=== PATIENT | female | born 1985 | race Caucasian/White ===

== ENCOUNTER 2019-12-18 19:48 | Emergency (ER) | payer MEDICAID, SELFPAY ==
[2019-12-18 20:19] VITALS: BP 119/82; PULSE 118; RESP 12; TEMP 36.9; O2SAT 97; BMI 23.3
--- NOTE | 2019-12-18 20:47 | W.ED.WOUNDLC ---
HPI - Wound/Laceration General: Chief Complaint: Wound/Laceration Stated Complaint: finger lac Time Seen by Provider: 12/18/19 20:05 History of Present Illness: HPI narrative: Cut right middle finger about an hour ago while taking a glass fixture off the ceiling that had a jagged edge on it Onset (ago): minute(s) Extremity Location: Right: hand Place: home Patient tetanus UTD: Yes Context: accidental Associated symptoms: Reports no associated symptoms and pain; Denies chills, fever(s), nausea or vomiting Review of Systems Const: Denies: fever(s), chills or body aches Eyes: Denies: change in vision or blurry vision ENMT: Denies: throat pain or nasal congestion Card: Denies: chest pain or dyspnea on exertion Resp: Denies: dyspnea, productive cough or non-productive cough GI: Denies: abdominal pain, nausea or vomiting Musc: Denies: extremity pain Skin/Breast: Reports: other (Small laceration right middle finger not actively bleeding patient complains about pain and says she feels like there might be a piece of glass); Denies: rash Neuro: Denies: headache(s) Psych: Denies: anxiety or depression Shaka/Lymph: Denies: easy bruising PFSH ED PFSH: Social History Smoking and tobacco status: current every day smoker Female Reproductive History: Date of last menstrual period: 11/24/19 Physical Exam Psych: COMMON NORMALS: mental status grossly normal Skin: OTHER: 1 inch laceration to the right middle finger medial aspect no active bleeding has full range of motion of finger distal neuro is intact Procedures Laceration Laceration 1: Site: hand Side (If applicable): right Size (cm): 1.5 Description: linear Depth: simple, single layer Local Anesthetic: lidocaine 1% Amount of anesthesia used (mL): 1 Pre-repair: wound explored (I cannot feel a piece of glass in her visualize obviously any glass), irrigated extensively and deep structures intact Skin layer closed with: nylon Size (cm): 4-0 Number of sutures: 3 Technique: simple, interrupted Course Vital Signs: Vital signs: Vital Signs Temperature 98.5 F 12/18/19 20:19 Pulse Rate 118 H 12/18/19 20:19 Respiratory Rate 12 12/18/19 20:19 Blood Pressure 119/82 12/18/19 20:19 Pulse Oximetry 97 12/18/19 20:19 Discharge Plan Discharge Patient Disposition: Home, Self-Care Clinical Impression: Laceration Condition: Stable Prescriptions: No Action No Known Home Medications RF: 0 Discharge Orders: Discharge Order (Routine); Ordered 12/18/19 Ordered By: Zachary Marr Discharge Diet: Usual diet Discharge Activity: Resume usual activity Patient Instructions: Finger Laceration (ED) Activity Restrictions/Additional Instructions: Sutures out in 7 days keep clean and dry if signs symptoms of infection develop follow-up the urgent care if pain persist in the finger follow-up urgent care and see about a referral to general surgeon in case her might be piece of glass in it Coding Level of Care Code ED Assisted Sales Representative for Hugo Schuster
[2019-12-18 21:31] VITALS: BP 118/64; PULSE 72; RESP 18; O2SAT 98
== END 2019-12-18 21:40 | disposition home or self-care (01) ==
PROVIDERS: Emergency Provider Nurse Practitioner Family
DX: S61.212A Laceration without foreign body of right middle finger without damage to nail, initial encounter (principal); W25.XXXA Contact with sharp glass, initial encounter; F17.210 Nicotine dependence, cigarettes, uncomplicated
CPT/HCPCS: 12001; 12345; 99281; 99282

== ENCOUNTER → 2020-09-03 11:23 | Outpatient (BNVA) | payer MEDICAID, SELFPAY | PROVIDERS: Visit Provider Nurse Practitioner Family | DX: N92.1 Excessive and frequent menstruation with irregular cycle (principal) | CPT/HCPCS: 84443; 85025; 88305 ==

== ENCOUNTER → 2020-09-12 13:40 | Outpatient (BNVA) | payer MEDICAID, SELFPAY | PROVIDERS: Visit Provider Obstetrics & Gynecology | DX: N92.0 Excessive and frequent menstruation with regular cycle (principal); N83.202 Unspecified ovarian cyst, left side; N88.8 Other specified noninflammatory disorders of cervix uteri | CPT/HCPCS: 76830 ==

== ENCOUNTER → 2021-06-03 14:10 | Outpatient (BNVA) | payer MEDICAID, SELFPAY | PROVIDERS: PCP Nurse Practitioner Family; Visit Provider Nurse Practitioner Family | DX: F41.1 Generalized anxiety disorder (principal) | CPT/HCPCS: 80053; 84443; 85025 ==

== ENCOUNTER 2022-03-08 16:21 | Emergency (ER) | payer MEDICAID, SELFPAY ==
[2022-03-08 16:37] VITALS: BP 129/89; PULSE 100; RESP 18; TEMP 37.9; O2SAT 99; BMI 23.3
[2022-03-08 16:47] VITALS: BP 108/71; PULSE 105; RESP 16; TEMP 36.4; O2SAT 99; BMI 17.7
--- NOTE | 2022-03-08 17:41 | XRR_ITS ---
PROCEDURE INFORMATION: Exam: XR Chest Exam date and time: 03/08/2022 6:34 PM Age: 36 years old Clinical indication: Shortness of breath; Additional info: Myalgia, fever TECHNIQUE: Imaging protocol: Radiologic exam of the chest. Views: 1 view. COMPARISON: CR Chest 1 [place] [id number] 04/07/2018 10:32 AM FINDINGS: Lungs: Unremarkable. No consolidation. Pleural spaces: Unremarkable. No pleural effusion. No pneumothorax. Heart/Mediastinum: Unremarkable. No cardiomegaly. Bones/joints: Unremarkable. XR/XR chest 1V portable [id number] IMPRESSION: No acute findings.
[2022-03-08 18:01] LABS: Basophils % 0.5 %; Eosinophils % 0.3 %; Hematocrit 39.5 % (37.0-47.0); Hemoglobin 13.4 g/dL (11.5-15.3); Lymphocytes # 0.5 10^3/uL (0.8-4.8); Mean Corpuscular HGB Conc 33.9 g/dL (30.0-36.0); Mean Corpuscular Hemoglobin 31.5 pg (28.0-34.0); Mean Corpuscular Volume 92.9 fl (81-99); Mean Platelet Volume 11.3 fL (7.4-10.4); Monocytes # 0.6 10^3/uL (0.2-0.9); Monocytes % 14.8 %; Neutrophils # 2.79 10^3/uL (1.8-7.7); Neutrophils % 71.1 %; Nucleated Red Blood Cells % 0 %; Platelet Count 172 10^3/cmm (130-400); Red Blood Count 4.25 10^6/uL (4.1-5.3); Red Cell Distribution Width 11.9 % (12.1-15.1); White Blood Count 3.9 10^3/uL (4.0-10.0)
[2022-03-08 18:47] LABS: Alanine Aminotransferase 12 U/L (0-33); Albumin Level 4.5 g/dL (3.5-5.2); Alkaline Phosphatase 46 U/L (35-105); Anion Gap 13.9 (5-19); Aspartate Amino Transferase 15 U/L (0-32); Blood Urea Nitrogen 7 mg/dL (6-20); Calcium 8.7 mg/dL (8.5-10.5); Carbon Dioxide 21 mmol/L (22-29); Chloride 103 mmol/L (98-107); Globulin 2.4 g/dL (1.3-4.6); Glomerular Filtration Rate 114.4 mL/min (90-130); Glucose 81 mg/dL (65-115); Osmolality Calculated 275 mOsm/kg (285-295); Potassium 3.9 mmol/L (3.5-5.1); Sodium 134 mmol/L (136-145); Total Bilirubin 0.2 mg/dL (0.15-1.2); Total Protein 6.9 g/dL (6.6-8.7)
--- NOTE | 2022-03-08 18:51 | ED_ITS ---
HPI - General Adult General: Chief complaint: Fever Stated complaint: Fever and whole body hurts Time Seen by Provider: 03/08/22 18:31 Source: patient and family Mode of arrival: ambulatory Limitations: no limitations History of Present Illness: Patient is a 36-year-old female presents to ED today with a complaint of not feeling well. Patient tells me yesterday she began noticing some mild body aches and a headache. She states since that time symptoms have progressed and is now having significant myalgias, headache, neck pain, ear pain, sore throat, nausea, and fevers. Fever upon arrival was low- grade at 100.3-100.9. She is not having any diarrhea or vomiting. 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 She does not complain of any visual changes. She is not having any neck stiffness or decreased range of motion. No rash. No urinary complaints. Onset (ago): day(s) (yesterday) Pain Consistency: constant Relieving factors: none Exacerbating factors: none Associated symptoms: Reports headache(s) and nausea; Deny chest pain, confusion, dyspnea, rash, palpitations, syncope or vomiting Treatments prior to arrival: other (tylenol/motrin) Review of Systems Const: Reports: fever(s), chills and body aches Eyes: Denies: change in vision, blurry vision, photophobia, floaters or seeing flashes ENMT: Reports: throat pain, odynophagia and ear or mastoid pain; Denies: nasal discharge, nasal congestion, post nasal drip or sinus pain Card: Denies: chest pain, palpitations, irregular heart rhythm, edema, lightheadedness, syncope, pre-syncope, dyspnea on exertion or orthopnea Resp: Denies: dyspnea, productive cough, non-productive cough, wheezing, hemoptysis or chest congestion GI: Reports: nausea; Denies: abdominal pain, vomiting or diarrhea : Denies: flank pain, difficulty voiding, dysuria, hematuria, vaginal odor, vaginal discharge or pelvic pain Musc: Reports: neck pain and joint pain (reports all her joints hurt ); Denies: back pain, extremity pain, extremity swelling, joint swelling, joint redness or joint warmth Skin/Breast: Denies: rash Neuro: Reports: headache(s); Denies: numbness in extremities, weakness in extremities, sensory changes, dizziness or confusion PFSH ED PFSH: Medical History Psychiatric care Family History Mother Anesthesia complication Ovarian cyst Hyperthyroidism Sister Ovarian cyst Father Hypothyroidism Denies family history of Diabetes Heart failure Hyperlipidemia Chronic kidney disease (CKD) Bleeding disorder Cancer Hypertension Stroke Social History Smoking and tobacco status: current every day smoker cigarettes Packs smoked per day: 0.5 Alcohol intake: never Female Reproductive History: Date of last menstrual period: 02/23/22 Physical Exam Const: COMMON NORMALS: average body habitus, patient oriented x3, no limitations, healthy appearing, alert and well nourished GENERAL APPEARANCE: cooperative and in distress (ill appearing, non-toxic) ORIENTATION/CONSC IOUSNESS: Yes awake, Yes oriented to person, Yes oriented to place and Yes oriented to time HENMT: COMMON NORMALS: normocephalic, atraumatic, external ears normal, EAC's normal, TM's normal bilaterally and Normal external nose present HEAD & SCALP: normal to inspection, normocephalic and atraumatic FACE & SINUS: normal facial exam NOSE: Normal external nose present EXTERNAL EAR: Yes external ears normal EXTERNAL AUDITORY CANAL: EAC's normal TYMPANIC MEMBRANE: TM's normal bilaterally MOUTH: Normal oral and palatal mucosa present, lip normal and tongue normal TEETH & GINGIVA: Yes fair dentition THROAT: posterior oropharynx normal, tonsils normal and uvula midline Eye: GENERAL EYE: appearance normal, both eyes and all related structures Neck/C-Spine: COMMON NORMALS: full ROM, no lymphadenopathy, supple and no meningeal signs GENERAL: Yes normal visual inspection, No anterior neck swelling and No submandibular swelling CERVICAL SPINE: Yes cervical ROM normal Resp: COMMON NORMALS: normal respiratory effort and clear to auscultation bilaterally AUSCULTATION: clear to auscultation bilaterally Cardio: COMMON NORMALS: regular rate and regular rhythm RATE: regular rate RHYTHM: regular rhythm GI: COMMON NORMALS: Normal to inspection, nondistended, normoactive bowel sounds present, Soft to palpation, non-tender, No hepatosplenomegaly present and no masses PALPATION: Yes Soft to palpation and Yes No hepatosplenomegaly present : COMMON NORMALS: Yes no CVA tenderness BLADDER/KIDNEY EXAM: Yes no CVA tenderness Back/Pelvis: COMMON NORMALS: no CVA tenderness, thoracic and lumbar spine normal to inspection, no thoracic nor lumbar tenderness and thoraco-lumbar ROM normal Extremity: COMMON NORMALS: normal to inspection GENERAL: Yes normal exam except as noted Neuro: KITTY COMA SCALE: document GCS findings [place] coma scale eye opening: Spontaneous [place] coma scale verbal response: Orientated [place] coma scale motor response: Obey commands Kitty coma scale total score: 15 COMMON NORMALS: patient oriented x3, CN's II-XII intact bilaterally, moves all extremities, no focal motor deficits, no sensory deficits noted and gait normal SENSORIUM/ORIENTATION: Yes alert, Yes oriented to person, Yes oriented to place and Yes oriented to time MENINGEAL SIGNS: Yes no meningeal signs Skin: COMMON NORMALS: no rashes or lesions noted GENERAL SKIN EXAM: no rashes or lesions noted Course Vital Signs: Vital signs: Vital Signs Temperature 100.9 F H 03/08/22 19:09 Pulse Rate 94 03/08/22 19:09 Respiratory Rate 18 03/08/22 19:09 Blood Pressure 136/93 03/08/22 19:09 Pulse Oximetry 97 03/08/22 19:09 Oxygen Delivery Me thod 03/08/22 19:09 [facility] - General Adult Medical Decision Making Patient is positive for COVID. Vital signs are stable. She does have a low- grade fever. She is satting normally on room air. Labs are non-concerning. CXR is normal. She has no risk factors for significant progression. Recommend conservative treatment at home. Return ED precautions given. Lab Data : 03/08/22 17:54 03/08/22 17:54 Radiology Impressions Chest X-Ray 03/08/22 17:41 IMPRESSION: No acute findings. Laboratory Results WBC 3.9 10^3/uL (4.0-10.0) L 03/08/22 17:54 RBC 4.25 10^6/uL (4.1-5.3) 03/08/22 17:54 Hgb 13.4 g/dL (11.5-15.3) 03/08/22 17:54 Hct 39.5 % (37.0-47.0) 03/08/22 17:54 MCV 92.9 fl (81-99) 03/08/22 17:54 MCH 31.5 pg (28.0-34.0) 03/08/22 17:54 MCHC 33.9 g/dL (30.0-36.0) 03/08/22 17:54 RDW 11.9 % (12.1-15.1) L 03/08/22 17:54 Plt Count 172 10^3/cmm (130-400) 03/08/22 17:54 MPV 11.3 fL (7.4-10.4) H 03/08/22 17:54 Neut % (Auto) 71.1 % 03/08/22 17:54 Lymph % (Auto) 13.0 % 03/08/22 17:54 [place] % (Auto) 14.8 % 03/08/22 17:54 Eos % (Auto) 0.3 % 03/08/22 17:54 Baso % (Auto) 0.5 % 03/08/22 17:54 Neut # (Auto) 2.79 10^3/uL (1.8-7.7) 03/08/22 17:54 Lymph # (Auto) 0.5 10^3/uL (0.8-4.8) L 03/08/22 17:54 [place] # (Auto) 0.6 10^3/uL (0.2-0.9) 03/08/22 17:54 Eos # (Auto) 0.0 10^3/uL (0.0-0.8) 03/08/22 17:54 Baso # (Auto) 0.0 10^3/uL (0.0-0.1) 03/08/22 17:54 Nucleated RBC % (auto) 0 % 03/08/22 17:54 Nucleated RBCs # 0.0 /100WBC 03/08/22 17:54 Sodium 134 mmol/L (136-145) L 03/08/22 17:54 Potassium 3.9 mmol/L (3.5-5.1) 03/08/22 17:54 Chloride 103 mmol/L (98-107) 03/08/22 17:54 Carbon Dioxide 21 mmol/L (22-29) L 03/08/22 17:54 Anion Gap 13.9 (5-19) 03/08/22 17:54 BUN 7 mg/dL (6-20) 03/08/22 17:54 Creatinine 0.6 mg/dL (0.5-0.9) 03/08/22 17:54 GFR Calculation 114.4 mL/min (90-130) 03/08/22 17:54 Glucose 81 mg/dL (65-115) 03/08/22 17:54 Calculated Osmolality 275 mOsm/kg (285-295) L 03/08/22 17:54 Calcium 8.7 mg/dL (8.5-10.5) 03/08/22 17:54 Total Bilirubin 0.2 mg/dL (0.15-1.2) 03/08/22 17:54 AST 15 U/L (0-32) 03/08/22 17:54 ALT 12 U/L (0-33) 03/08/22 17:54 Alkaline Phosphatase 46 U/L (35-105) 03/08/22 17:54 Total Protein 6.9 g/dL (6.6-8.7) 03/08/22 17:54 Albumin 4.5 g/dL (3.5-5.2) 03/08/22 17:54 Globulin 2.4 g/dL (1.3-4.6) 03/08/22 17:54 Urine Color Yellow (Yellow) 03/08/22 18:06 Urine Appearance Sl hazy (CLEAR) 03/08/22 18:06 Urine pH 6 (5-7) 03/08/22 18:06 Ur Specific [place] 1.015 (1.005-1.030) 03/08/22 18:06 Urine Protein Neg (Negative) 03/08/22 18:06 Urine Glucose (UA) Norm (Normal) 03/08/22 18:06 Urine Ketones 2+ (Negative) H 03/08/22 18:06 Urine Blood Neg (Negative) 03/08/22 18:06 Urine Nitrate Negative (Negative) 03/08/22 18:06 Urine Bilirubin Neg (Negative) 03/08/22 18:06 Urine Urobilinogen 1 mg/dL (Negative) H 03/08/22 18:06 Ur Leukocyte Esterase Negative (Negative) 03/08/22 18:06 Urine RBC None /hpf (0-2) 03/08/22 18:06 Urine WBC None /hpf (0-5) 03/08/22 18:06 Ur Squamous Epith Cells 5-10 /hpf (0-5) H 03/08/22 18:06 Amorphous Sediment Not Reportable 03/08/22 18:06 Urine Bacteria Trace /hpf (NONE) 03/08/22 18:06 Urine Mucus Trace /hpf 03/08/22 18:06 Coronavirus 229E (PCR) Not detected (NOT DETECT) 03/08/22 17:54 SARS-CoV-2 (PCR) Detected (NOT DETECT) A 03/08/22 17:54 Discharge Plan Discharge Patient Disposition: Home Clinical Impression: COVID-19 Condition: Stable Prescriptions: No Action ibuprofen 200 mg tablet 200 mg PO Q6H PRN levonorgestrel-ethinyl estrad [Aviane] 0.1-20 mg-mcg tablet 1 tab PO DAILY Qty: 28 12RF triamcinolone acetonide 0.1 % ointment 1 applic topical BID Qty: 30 2RF Rx Instructions: large area both hands buspirone 10 mg tablet 10 mg PO BID PRN (Reason: anxiety) Qty: 60 5RF citalopram [Celexa] 20 mg tablet 20 mg PO DAILY Qty: 30 5RF Discharge Orders: Discharge ED (Routine); Ordered 03/08/22 Ordered By: Mariposa Fuentes Referrals: Joana Tariq FNP-C [Primary Care Provider] - Patient Instructions: COVID-19 (Coronavirus Disease 2019) (ED) Coding Level of Care Code ED Concrete Products Machine Operator for Chg Fwd Exam Comprehensive
[2022-03-08 18:52] LABS: Bilirubin Urine Neg (Negative); Blood Urine Neg (Negative); Glucose Urine UA Norm (Normal); Ketones Urine 2+ (Negative); Nitrate Urine Negative (Negative); Protein Urine Neg (Negative); Specific Gravity, Urine 1.015 (1.005-1.030); Urine Appearance SL Hazy (CLEAR); Urine Color Yellow (Yellow); pH Urine 6 (5-7)
[2022-03-08 18:53] LABS: Add Urine Microscopic? YES; Leukocyte Esterase Urine Negative (Negative); Urobilinogen Urine 1 mg/dL (Negative)
[2022-03-08 18:54] LABS: Add Urine Culture? No; Bacteria Urine TRACE /hpf; Mucus Urine TRACE /hpf
[2022-03-08] MEDS: acetaminophen 500 mg Tablet 1000 MG PO (19:06)
[2022-03-08 19:09] VITALS: BP 136/93; PULSE 94; RESP 18; TEMP 38.3; O2SAT 97
[2022-03-08 19:52] LABS: Adenovirus Not Detected (NOT DETECT); Chlamydia Pneumoniae Not Detected (NOT DETECT); Coronavirus 229E,HKU1,NL63,OC4 Not Detected (NOT DETECT); Human Metapneumovirus Not Detected (NOT DETECT); Human Rhinovirus/Enterovirus Not Detected (NOT DETECT); Influenza A Not Detected (NOT DETECT); Influenza A H1 Not Detected (NOT DETECT); Influenza A H1-2009 Not Detected (NOT DETECT); Influenza A H3 Not Detected (NOT DETECT); Influenza B Not Detected (NOT DETECT); Mycoplasma Pneumoniae Not Detected (NOT DETECT); Parainfluenza Virus Type 1 Not Detected (NOT DETECT); Parainfluenza Virus Type 2 Not Detected (NOT DETECT); Parainfluenza Virus Type 3 Not Detected (NOT DETECT); Parainfluenza Virus Type 4 Not Detected (NOT DETECT); Respiratory Syncytial Virus A Not Detected (NOT DETECT); Respiratory Syncytial Virus B Not Detected (NOT DETECT); SARS-COV-2 Detected (NOT DETECT)
[2022-03-08 20:40] VITALS: BP 111/61; PULSE 74; RESP 18; TEMP 36.9; O2SAT 96
== END 2022-03-08 20:42 | disposition home or self-care (01) ==
PROVIDERS: Emergency Provider Physician Assistant; PCP Nurse Practitioner Family
DX: U07.1 COVID-19 (principal); F17.210 Nicotine dependence, cigarettes, uncomplicated
CPT/HCPCS: 71045; 80053; 81001; 85025; 87635; 99284

== ENCOUNTER 2022-11-29 20:43 | Emergency (ER) | payer MEDICAID, SELFPAY ==
[2022-11-29 21:01] VITALS: BP 124/79; PULSE 85; RESP 16; TEMP 36.8; O2SAT 98; BMI 25.7
[2022-11-29 22:03] VITALS: BP 118/74; PULSE 77; RESP 16; O2SAT 98
--- NOTE | 2022-11-29 22:08 | ED_ITS ---
HPI - Skin/Abscess/Foreign Bdy General: Chief complaint: Skin/Abscess/Foreign Body Stated complaint: spider bite to L thigh Time Seen by Provider: 11/29/22 21:48 Source: patient Mode of arrival: ambulatory Limitations: no limitations History of Present Illness: Patient is a nice 37-year-old female presents to ED today for concern of a possible brown recluse bite to her left upper thigh that she noticed yesterday. She states it started as a small black dot . She has seen multiple brown recluse's in her home. She states she noticed today the lesion began having some surrounding erythema. She states it is painful and burning in nature. MD complaint: insect bite/sting and lesion Onset (ago): day(s) (yesterday) Tetanus up to date: no Location: LLE Severity: moderate Quality: burning Pain Consistency: constant Relieving factors: none Exacerbating factors: none Context: other (possible spider bite) Associated symptoms: Reports no associated symptoms; Deny chills or fever(s) Treatments prior to arrival: none Review of Systems Const: Denies: fever(s), chills, body aches, fatigue or malaise Card: Denies: chest pain Resp: Denies: dyspnea GI: Denies: abdominal pain Musc: Reports: extremity pain; Denies: neck pain, back pain, extremity swelling, joint pain, joint swelling, joint redness or joint warmth Skin/Breast: Reports: new lesions Neuro: Denies: headache(s), numbness in extremities or sensory changes PFSH ED PFSH: Family History Mother Anesthesia complication Ovarian cyst Hyperthyroidism Sister Ovarian cyst Father Hypothyroidism Denies family history of Diabetes Heart failure Hyperlipidemia Chronic kidney disease (CKD) Bleeding disorder Cancer Hypertension Stroke Social History Smoking and tobacco status: current every day smoker cigarettes Packs smoked per day: 0.5 Alcohol intake: never Substance/Drug Use: current Substance/Drug use frequency: Special occassions/opportunity only Physical Exam Const: COMMON NORMALS: no acute distress, average body habitus, patient oriented x3, no limitations, healthy appearing, alert and well nourished Extremity: COMMON NORMALS: full ROM, capillary refill normal, no joint enlargement, no clubbing, cyanosis or edema, no calf tenderness and no pedal edema GENERAL: Yes normal exam except as noted LEFT LOWER EXTREMITY: Yes upper leg (see skin below) Neuro: COMMON NORMALS: patient oriented x3, moves all extremities, no focal motor deficits, no sensory deficits noted and gait normal SENSORIUM/ORIENTATION: Yes alert Skin: NARRATIVE SKIN EXAM: small central hemorrhagic punctate and approximately 2 inches of surrounding erythema to her left anterior upper medial thigh; lesion is consistent with a spider bite Course Vital Signs: Vital signs: Vital Signs Temperature 98.3 F 11/29/22 22:34 Pulse Rate 77 11/29/22 22:34 Respiratory Rate 16 11/29/22 22:34 Blood Pressure 118/74 11/29/22 22:34 Pulse Oximetry 98 11/29/22 22:34 Oxygen Delivery Me thod Room Air 11/29/22 21:01 MDM - Skin/Abscess/Foreign Bdy Medicial Decision Making Spider bite wound care and precautions were discussed with patient. Both of these bites heal well with conservative therapies. We did discuss monitoring for secondary bacterial infections. She was given a prescription for antibiotics with instructions to only fill if she begins experiencing these. Recommend follow-up with primary care this week for reevaluation. Discharge Plan Discharge Patient Disposition: Home Clinical Impression: Brown recluse spider bite Qualifiers: Encounter type: initial encounter Injury intent: accidental or unintentional Qualified Code(s): T63.331A - Toxic effect of venom of yulissa yancey spider, accidental (unintentional), initial encounter Condition: Stable Prescriptions: Continued Bactrim DS 800-160 mg tablet 1 tab PO BID Qty: 14 0RF No Action ibuprofen 200 mg tablet 200 mg PO Q6H PRN levonorgestrel-ethinyl estrad [Aviane] 0.1-20 mg-mcg tablet 1 tab PO DAILY Qty: 28 12RF buspirone 10 mg tablet 10 mg PO BID PRN (Reason: anxiety) Qty: 60 5RF citalopram [Celexa] 20 mg tablet 20 mg PO DAILY Qty: 30 5RF prednisone 10 mg tablets,dose pack See Rx Instructions PO PER PKG DIR Qty: 21 0RF Rx Instructions: PO PER PKG DIR triamcinolone acetonide 0.1 % ointment 1 applic topical BID Qty: 30 2RF Rx Instructions: large area both hands Discharge Orders: Discharge ED (Routine); Ordered 11/29/22 Ordered By: Mariposa Fuentes Referrals: Joana Tariq FNP-C [Primary Care Provider] - Patient Instructions: Brown Recluse Spider Bite, Insect Bite or Sting (ED), Brown Recluse Spider Bite (ED) Activity Restrictions/Additional Instructions: Initial treatment measures following any spider bite include: ?Clean the bite with mild soap and water. ?Apply cold packs, taking care not to freeze the tissue. ?Administer tetanus prophylaxis (you should have received this prior to discharge) As we discussed most bites can be managed with minimal intervention but do need to be watched carefully for the development of secondary bacterial infection. You have been given a prescription for antibiotics but I do not want you to fill these unless redness to wound continues to spread, becomes fluctuant or begins having purulent like drainage. Please follow-up with your primary care provider this week for reevaluation. Coding Level of Care Code ED Pediatric Anesthesiologist for Hugo Schuster
[2022-11-29] MEDS: tetanus-dipt-pertussis 0.5 mL SDV IM (22:29)
[2022-11-29 22:34] VITALS: BP 118/74; PULSE 77; RESP 16; TEMP 36.8; O2SAT 98
== END 2022-11-29 22:43 | disposition home or self-care (01) ==
PROVIDERS: Emergency Provider Physician Assistant; PCP Nurse Practitioner Family
DX: T63.331A Toxic effect of venom of brown recluse spider, accidental (unintentional), initial encounter (principal); F17.210 Nicotine dependence, cigarettes, uncomplicated; Z23 Encounter for immunization
CPT/HCPCS: 90471; 90715; 99283

== ENCOUNTER 2023-06-06 18:56 | Emergency (ER) | payer MEDICAID, SELFPAY ==
--- NOTE | 2023-06-06 18:59 | XRR_ITS ---
PROCEDURE INFORMATION: Exam: XR Chest Exam date and time: 06/06/2023 7:24 PM Age: 37 years old Clinical indication: Cough and shortness of breath; Patient HX: Cough; Chest congestion; Smoker TECHNIQUE: Imaging protocol: Radiologic exam of the chest. Views: 1 view. COMPARISON: CR XR chest 1V portable [id number] 03/08/2022 6:34 PM FINDINGS: Lungs: Unremarkable. No consolidation. Pleural spaces: Unremarkable. No pleural effusion. No pneumothorax. Heart/Mediastinum: Unremarkable. No cardiomegaly. Bones/joints: Unremarkable. XR/XR chest 1V portable [id number] IMPRESSION: No acute findings.
[2023-06-06 19:00] VITALS: BP 123/84; PULSE 85; RESP 18; TEMP 36.6; O2SAT 98; BMI 25.0
--- NOTE | 2023-06-06 19:33 | W.ED.URI ---
HPI - URI/Sore Throat General: Chief Complaint: Upper Respiratory Infection Stated Complaint: cough, stabbing pain lung. cant breathe Time Seen by Provider: 06/06/23 19:10 Source: patient Mode of arrival: ambulatory Limitations: no limitations History of Present Illness: 37-year-old female states for last 2 days she has had a dry persistent cough. States she also had some nasal congestion she is having sharp pains in her lungs due to her cough. States her whole house has been sick with similar symptoms. She is in no distress here pulse ox is normal denies any fevers denies any vomiting or diarrhea Associated symptoms: Deny abdominal pain, chills, chest pain, diarrhea, fever(s), headache(s), nausea or vomiting Review of Systems Const: Denies: fever(s), chills, body aches or change in appetite ENMT: Reports: throat pain; Denies: dental pain Card: Denies: chest pain Resp: Reports: dyspnea and non-productive cough GI: Denies: abdominal pain, nausea, vomiting or diarrhea : Denies: dysuria Musc: Denies: neck pain or back pain Skin/Breast: Denies: rash Neuro: Denies: headache(s) PFSH ED PFSH: Family History Mother Anesthesia complication Ovarian cyst Hyperthyroidism Sister Ovarian cyst Father Hypothyroidism Denies family history of Diabetes Heart failure Hyperlipidemia Chronic kidney disease (CKD) Bleeding disorder Cancer Hypertension Stroke Social History Smoking and tobacco/nicotine status: current every day tobacco/nicotine user cigarettes Packs smoked per day: 0.5 Alcohol intake: never Substance/Drug Use: current Substance/Drug use frequency: Special occassions/opportunity only Physical Exam Const: COMMON NORMALS: no acute distress, patient oriented x3 and healthy appearing HENMT: COMMON NORMALS: normocephalic and atraumatic HEAD & SCALP: normocephalic and atraumatic Eye: COMMON NORMALS: Equal, round and reactive pupils present and EOMs intact bilaterally PUPIL: Yes Equal, round and reactive pupils present Neck/C-Spine: COMMON NORMALS: full ROM and supple Chest: COMMONS NORMALS: normal inspection of the chest and normal palpation of entire chest wall Resp: COMMON NORMALS: normal respiratory effort, No retractions, No use of accessory muscles and clear to auscultation bilaterally AUSCULTATION: clear to auscultation bilaterally Cardio: COMMON NORMALS: regular rate, regular rhythm and No murmurs present (Cardio) RATE: regular rate RHYTHM: regular rhythm GI: COMMON NORMALS: Normal to inspection, nondistended, normoactive bowel sounds present, Soft to palpation, non-tender and no masses PALPATION: Yes Soft to palpation Extremity: COMMON NORMALS: normal to inspection and full ROM Neuro: COMMON NORMALS: patient oriented x3, moves all extremities and no focal motor deficits Psych: COMMON NORMALS: mental status grossly normal, Normal thought process present and cooperative THOUGHT PROCESS: Normal thought process present Skin: COMMON NORMALS: no rashes or lesions noted and no wounds GENERAL SKIN EXAM: no rashes or lesions noted Course Vital Signs: Vital signs: Vital Signs Temperature 97.9 F 06/06/23 19:00 Pulse Rate 85 06/06/23 19:00 Respiratory Rate 18 06/06/23 19:56 Blood Pressure 123/84 06/06/23 19:00 Pulse Oximetry 95 06/06/23 19:56 Oxygen Delivery Me thod Room Air 06/06/23 19:56 MDM - URI/Sore Throat Medical Decision Making Patient presents here with cough likely upper respiratory infection x-ray shows no pneumonia viral panel is pending did give her inhaler along with a Decadron shot she is stable for discharge she is to follow-up with PCP and return if worsening. Medical Records I reviewed the patient's medical records. Lab Data Radiology Impressions Chest X-Ray 06/06/23 18:59 IMPRESSION: No acute findings. All radiology interpretation(s) finalized by discharge Discharge Plan Discharge Patient Disposition: Home Clinical Impression: Upper respiratory infection Condition: Stable Prescriptions: New albuterol sulfate 90 mcg/actuation HFA aerosol inhaler 2 inh INHALATION Q6H PRN (Reason: shortness of breath or wheezing) Qty: 8 0RF No Action ibuprofen 200 mg tablet 200 mg PO Q6H PRN buspirone 10 mg tablet 10 mg PO BID PRN (Reason: anxiety) Qty: 60 5RF triamcinolone acetonide 0.1 % ointment 1 applic topical BID Qty: 30 2RF Rx Instructions: large area both hands hydrocodone-acetaminophen 5-325 mg tablet 1 tab PO Q6H PRN (Reason: pain) 7 Days Qty: 28 0RF ibuprofen 800 mg tablet 800 mg PO Q8H PRN (Reason: pain) Qty: 60 0RF methocarbamol 750 mg tablet 750 mg PO Q8H Qty: 30 0RF Discharge Orders: Discharge ED (Routine); Ordered 06/06/23 Ordered By: Karon Haddad Referrals: Joana Tariq FNP-C [Primary Care Provider] - 1-3 days Discharge Diet: Advance as tolerated Discharge Activity: Resume usual activity Patient Instructions: Upper Respiratory Infection (ED) Coding Level of Care Code ED Addiction Therapist for Hugo Schuster
[2023-06-06] MEDS: dexamethasone 10 mg/mL INJ IM (19:45)
[2023-06-06] MEDS: benzonatate 100 mg Capsule PO (19:45)
[2023-06-06 19:56] VITALS: RESP 18; O2SAT 95
[2023-06-06] MEDS: albuterol 8 gm MDI 2 PUFF INHALATION (19:56)
[2023-06-06 21:32] LABS: Adenovirus Not Detected (NOT DETECT); Chlamydia Pneumoniae Not Detected (NOT DETECT); Coronavirus 229E,HKU1,NL63,OC4 Not Detected (NOT DETECT); Human Metapneumovirus Not Detected (NOT DETECT); Human Rhinovirus/Enterovirus Not Detected (NOT DETECT); Influenza A Not Detected (NOT DETECT); Influenza A H1 Not Detected (NOT DETECT); Influenza A H1-2009 Not Detected (NOT DETECT); Influenza A H3 Not Detected (NOT DETECT); Influenza B Detected (NOT DETECT); Mycoplasma Pneumoniae Not Detected (NOT DETECT); Parainfluenza Virus Type 1 Not Detected (NOT DETECT); Parainfluenza Virus Type 2 Not Detected (NOT DETECT); Parainfluenza Virus Type 3 Not Detected (NOT DETECT); Parainfluenza Virus Type 4 Not Detected (NOT DETECT); Respiratory Syncytial Virus A Not Detected (NOT DETECT); Respiratory Syncytial Virus B Not Detected (NOT DETECT); SARS-COV-2 Not Detected (NOT DETECT)
== END 2023-06-06 20:06 | disposition home or self-care (01) ==
PROVIDERS: Emergency Provider Emergency Medicine; PCP Nurse Practitioner Family
DX: J06.9 Acute upper respiratory infection, unspecified (principal); F17.210 Nicotine dependence, cigarettes, uncomplicated
CPT/HCPCS: 71045; 87486; 87581; 87633; 94640; 96372; 99284; J1100; J3535

== ENCOUNTER → 2023-10-21 09:06 | Outpatient (BNVA) | payer MEDICAID, SELFPAY | PROVIDERS: PCP Nurse Practitioner Family; Visit Provider Nurse Practitioner Family | DX: M79.672 Pain in left foot; M25.572 Pain in left ankle and joints of left foot; M79.675 Pain in left toe(s) | CPT/HCPCS: 73630 ==

== ENCOUNTER → 2024-03-20 09:32 | Outpatient (BNVA) | payer MEDICAID, SELFPAY | PROVIDERS: PCP Nurse Practitioner Family; Visit Provider Nurse Practitioner Family | DX: R39.9 Unspecified symptoms and signs involving the genitourinary system (principal) | CPT/HCPCS: 81000 ==

== ENCOUNTER 2024-10-10 06:00 | Outpatient (RCR) | payer MEDICAID, SELFPAY | END 2024-11-08 23:59 | disposition home or self-care (01) | LOC: APT 06:00 | PROVIDERS: Visit Provider Orthopaedic Surgery | DX: M25.562 Pain in left knee (principal); G89.29 Other chronic pain | CPT/HCPCS: 97110; 97161 ==

== ENCOUNTER 2024-10-12 12:03 | Emergency (ER) | payer MEDICAID, SELFPAY ==
[2024-10-12 12:11] VITALS: BP 113/71; PULSE 74; TEMP 37; O2SAT 98; BMI 29.9
--- NOTE | 2024-10-12 12:14 | XR_ITS ---
WS: [id number] XR knee LT 3V* [id number] REASON FOR EXAM: Left knee injury FINDINGS: No acute fracture. Patella and tibial plateaus are intact. Joint spaces of the left knee are intact and well preserved. XR/XR knee LT 3V* [id number] IMPRESSION: No acute abnormality.
[2024-10-12 13:26] VITALS: BP 103/86; PULSE 69; RESP 16; O2SAT 100
--- NOTE | 2024-10-12 13:29 | ED_ITS ---
HPI - Extremity Problem General: Chief complaint: Extremity Injury, Lower Stated complaint: lt knee inj Time Seen by Provider: 10/12/24 13:25 History of Present Illness: 39-year-old female who presents to the e mergency room with complaint of leg pain and swelling. She fell last night when she tripped landing on her knees she has not been able to bear full weight. Extremely painful she has some moderate swelling. She has not taken anything for it at this point. She has not had any other previous injury or surgery to this knee. No other injuries as result of the fall. Related Data Previous Rx's ?Medication ?Instructions ?Recorded diclofenac sodium 75 mg 75 mg PO Q12H PRN pain #20 t abs 10/12/24 tablet,delayed release Allergies Allergy/AdvReac Type Severity Reaction Status Date / Time hydromorphone (From Dilaudid) Allergy ADR-Nausea Verified 10/12/24 12:15 Review of Systems Musc: Reports: joint pain and joint swelling PFS ED PFSH: Family History Mother Anesthesia complication Ovarian cyst Hyperthyroidism Sister Ovarian cyst Father Hypothyroidism Denies family history of Diabetes Heart failure Hyperlipidemia Chronic kidney disease (CKD) Bleeding disorder Cancer Hypertension Stroke Social History Smoking and tobacco/nicotine status: current every day tobacco/nicotine user cigarettes Packs smoked per day: 0.5 Alcohol intake: never Substance/Drug Use: current Substance/Drug use frequency: Special occassions/ opportunity only Physical Exam Const: COMMON NORMALS: no acute distress GENERAL APPEARANCE: cooperative and comfortable ORIENTATION/CONSCIOUSNESS: Yes awake, Yes oriented to person, Yes oriented to place and Yes oriented to time HENMT: COMMON NORMALS: normocephalic, atraumatic and hearing grossly normal bilaterally HEAD & SCALP: normocephalic and atraumatic Resp: COMMON NORMALS: normal respiratory effort, No retractions and No use of accessory muscles Extremity: COMMON NORMALS: normal to inspection, capillary refill normal, no clubbing, cyanosis or edema, no calf tenderness and no pedal edema OTHER: Examination of the left knee very small joint effusion drawer and Negrito's test negative however due to pain was not able to adequately stress the joint no varus or valgus deformities but severe pain medially and laterally with even mild palpation any stress in the joint causes severe pain. Due to discomfort very limited exam Neuro: SENSORIUM/ORIENTATION: Yes oriented to person, Yes oriented to place and Yes oriented to time Skin: COMMON NORMALS: no rashes or lesions noted GENERAL SKIN EXAM: no rashes or lesions noted Course Vital Signs: Vital signs: Vital Signs Temperature 98.6 F 10/12/24 12:11 Pulse Rate 75 10/12/24 14:04 Respiratory Rate 16 10/12/24 14:04 Blood Pressure 119/69 10/12/24 14:04 Pulse Oximetry 100 10/12/24 14:04 Oxygen Delivery Me thod Room Air 10/12/24 13:26 MDM - Extremity (Nontraumatic) Medical Decision Making Difficult to examine knee because of the amount of pain that she is having there is a small joint effusion. X-ray does not show any acute fractures. Will discharge patient home with knee immobilizer crutches anti-inflammatories ice elevate the leg as needed for comfort refer to orthopedics. Reviewed recommendations with the patient Lab Data Radiology Impressions Knee X-Ray 10/12/24 12:14 IMPRESSION: No acute abnormality. All radiology interpretation(s) finalized by discharge Discharge Plan Discharge Patient Disposition: Home Clinical Impression: Knee sprain Condition: Stable Prescriptions: New diclofenac sodium 75 mg tablet,delayed release (DR/EC) 75 mg PO Q12H PRN (Reason: pain) Qty: 20 0RF Discharge Orders: Discharge ED (Routine); Ordered 10/12/24 Ordered By: Arben Dobbs Referrals: Joana Tariq FNP-C [Primary Care Provider] - Discharge Diet: Usual diet Discharge Activity: Increase activity as tolerated Patient Instructions: Opioid Safety, Pain Management Activity Restrictions/Additional Instructions: Thank you for choosing [facility] for your healthcare needs today. It is very important that you follow up as instructed or that you return to the Emergency Department should you have concerns or if your condition changes or worsens in any way. You are seen emergency room with complaint of left knee pain after a fall. X- ray did not show any acute fractures. Due to the degree of discomfort you had it was difficult to get a full examination of the knee. Suspect you may have sprained it there is a possibility of a significant ligamentous injury this would need to be diagnosed on MRI. Recommend you use a knee immobilizer crutches and be nonweightbearing on the left leg until you follow-up with orthopedics they can reexamine and determine whether or not further advanced imaging will be necessary. Print Language: [place]an Coding Level of Care Code ED Power Barker Operator for Hugo Schuster
[2024-10-12 14:04] VITALS: BP 119/69; PULSE 75; RESP 16; O2SAT 100
== END 2024-10-12 14:07 | disposition home or self-care (01) ==
PROVIDERS: Emergency Provider Family Medicine; PCP Nurse Practitioner Family
DX: S83.92XA Sprain of unspecified site of left knee, initial encounter (principal); W19.XXXA Unspecified fall, initial encounter
CPT/HCPCS: 29530; 73562; 99283; E0114

== ENCOUNTER → 2024-10-23 09:52 | Outpatient (BNVA) | payer MEDICAID, SELFPAY | PROVIDERS: PCP Nurse Practitioner Family; Visit Provider Orthopaedic Surgery | DX: S76.192A Other specified injury of left quadriceps muscle, fascia and tendon, initial encounter (principal); W01.0XXA Fall on same level from slipping, tripping and stumbling without subsequent striking against object, initial encounter | CPT/HCPCS: 73562 ==

== ENCOUNTER 2024-11-09 05:00 | Outpatient (RCR) | payer MEDICAID, SELFPAY | END 2024-12-09 23:59 | disposition home or self-care (01) | LOC: APT 05:00 | PROVIDERS: PCP Nurse Practitioner Family; Visit Provider Orthopaedic Surgery | DX: M25.569 Pain in unspecified knee (principal); G89.29 Other chronic pain | CPT/HCPCS: 97110 ==

== ENCOUNTER 2025-03-21 18:18 | Emergency (ER) | payer MEDICAID, SELFPAY ==
[2025-03-21] VITALS (8 sets, daily range): BP systolic 113–140; BP diastolic 65–106; PULSE 69–106; RESP 14–18; TEMP 36.7; O2SAT 98–99; BMI 30.7
--- OUTSIDE RECORDS SUMMARY | 2025-03-21 18:26 | XMS_ITS | Patient Health Record ---
Author Organization [facility] Address [address] [place] [address] Care Team Providers Care Schedule Supervisor Name Role Phone [facility] Pr ovider Unavailable Allergies Allergen (clinical drug ingredient) Drug/Non Drug Allergy documented on EMR Reaction Allergy Type Onset Date Status hydromorphone Dilaudid nausea and vomiting Drug Allergy Active Reason For Referral No Information Medications Medication SIG (Take, Route, Frequency, Duration) Notes Start Date End Date Status Amoxicillin Active Ibuprofen 800 MG Tablet 1 tablet with fo od or milk as needed Orally every 8 hrs Active Bactrim 400-80 MG Tablet 1 tablet Orally Once a day Not-Taking/PRN Tylenol 325 MG Capsule 1 capsule as need ed Orally every 6 hrs Active Social History Sex Assigned At : Social History Observation Description Sex Assigned At Female Plan Of Treatment No Information Insurance Providers Payer Name Payer Address Payer Phone Subscriber Number Group Number Insured Name Patient Relationship to Insured Coverage Start Date Coverage End Date [employer] [place] [address] [place] [phone] [id number] Garo Hyunh Self - patient is the insured [employer] [address] [place] [address] [id number] Garo Hunyh Self - patient is the insured Medical (General) History Medical History History ICD Code Spider bite seasonal allergies
[2025-03-21 20:27] LABS: Hematocrit 38.3 % (36-47); Hemoglobin 13.10 g/dL (11.27-16.99); Mean Corpuscular HGB Conc 34.2 g/dL (30-55); Mean Corpuscular Hemoglobin 30.3 pg (27-33); Mean Corpuscular Volume 88.5 fl (85-98); Nucleated Red Blood Cells % 0 %; Platelet Count 266 10^3/cmm (157-399); Red Blood Count 4.33 10^6/uL (3.85-5.65); White Blood Count 11.75 10^3/uL (3.29-11.43)
[2025-03-21 20:30] LABS: HCG Qualitative Urine. Negative (Negative)
--- NOTE | 2025-03-21 20:32 | ED_ITS ---
HPI - Abdominal Pain 2 General: Chief Complaint: Abdominal Pain Stated Complaint: Lower ABD Headache Vision blurry Time Seen by Provider: 03/21/25 18:37 Source: patient Mode of arrival: ambulatory Limitations: no limitations History of Present Illness: Patient is a 39-year-old female who presents to the emergency department complaining of lower abdominal pain beginning this morning at 0800. She states that she started to feel a fullness in her lower abdomen and took Azo believing that she was having urinary tract symptoms, however has not reported any dysuria. States that her urine has been orange and she has noticed flecks of red in it, and has continued to have lower abdominal pain. States she is nauseous but has not had any vomiting. No diarrhea or constipation. Denies any vaginal bleeding, odor, or discharge. States that the pain is caused her to have dizziness and a headache, has taken ibuprofen but with minimal reduction in her pain. Vitals are stable at this time, overall nontoxic-appearing. Reports a history of appendectomy in 2010. Denies possibility as she states she also has had a tubal ligation. MD elicited complaint: abdominal pain Onset (ago): hour(s) Pain Consistency: constant Location: Suprapubic Severity: moderate Quality: cramping and fullness Radiation: none Exacerbating factors: nothing Relieving factors: nothing Associated Symptoms: Reports nausea; Denies bloating, change in stool character, chills, constipation, diarrhea, dysuria, fever(s), hematochezia and vomiting Related Data Previous Rx's ?Medication ?Instructions ?Recorded diclofenac sodium 75 mg 75 mg PO Q12H PRN pain #20 t abs 10/12/24 tablet,delayed release ondansetron 4 mg disintegrating 4 mg PO TID PRN nausea and 03/21/25 tablet vomiting #30 tabs sulfamethoxazole 800 1 tab PO BID 7 days #14 tabs 03/21/25 mg-trimethoprim 160 mg tablet (Bactrim DS) Allergies Allergy/AdvReac Type Severity Reaction Status Date / Time hydromorphone (From Dilaudid) Allergy ADR-Nausea Verified 03/21/25 18:34 Review of Systems 2 General: Reports: 10 or more systems reviewed and unremarkable except in HPI and below Const: Denies: fever(s), chills, change in appetite, change in weight or diaphoresis ENMT: Denies: throat pain or hoarseness Card: Denies: chest pain, palpitations or lightheadedness Resp: Denies: dyspnea, productive cough or wheezing GI: Reports: abdominal pain and nausea; Denies: vomiting, diarrhea, constipation, bloating, change in stool character or hematochezia : Reports: other (Red flecks in urine, orange urine); Denies: flank pain, difficulty voiding, dysuria, urinary frequency or urinary urgency Musc: Denies: neck pain or back pain Skin/Breast: Denies: rash or new lesions Neuro: Reports: headache(s) and dizziness PFSH ED 2 PFSH: Family History Mother Anesthesia complication Ovarian cyst Hyperthyroidism Sister Ovarian cyst Father Hypothyroidism Denies family history of Diabetes Heart failure Hyperlipidemia Chronic kidney disease (CKD) Bleeding disorder Cancer Hypertension Stroke Social History Smoking and tobacco/nicotine status: current every day tobacco/nicotine user cigarettes Packs smoked per day: 0.5 Alcohol intake: never Substance/Drug Use: current Substance/Drug use frequency: Special occassions/opportunity only Physical Exam 2 Const: COMMON NORMALS: no acute distress, average body habitus, patient oriented x3, no limitations, healthy appearing, alert and well nourished G ENERAL APPEARANCE: cooperative and comfortable ORIENTATION/CONSCIOUSNESS: Yes awake OTHER: Nontoxic-appearing Neck/C-Spine: COMMON NORMALS: full ROM, supple, no meningeal signs and no JVD Resp: COMMON NORMALS: normal respiratory effort, No retractions, No use of accessory muscles and clear to auscultation bilaterally AUSCULTATION: clear to auscultation bilaterally, no crackles, no rales, no rhonchi and no wheezes Cardio: COMMON NORMALS: no JVD, regular rate, regular rhythm, No gallops present (Cardio), No clicks present (Cardio), No murmurs present (Cardio), No rub (Cardio) and Peripheral pulses 2+ throughout RATE: regular rate R HYTHM: regular rhythm PERIPHERAL PULSES: Peripheral pulses 2+ throughout GI: COMMON NORMALS: Normal to inspection, nondistended, normoactive bowel sounds present, Soft to palpation, No hepatosplenomegaly present and no masses AUSCULTATION: Yes normoactive bowel sounds PALPATION: Yes Soft to palpation, Yes Tenderness to palpation present (GI) (Suprapubic), No Guarding due to palpation present (GI), No Rigid due to palpation and Yes No hepatosplenomegaly present RECTAL EXAM: deferred : COMMON NORMALS: Yes no CVA tenderness BLADDER/KIDNEY EXAM: Yes no CVA tenderness Back/Pelvis: COMMON NORMALS: no CVA tenderness Extremity: COMMON NORMALS: normal to inspection and full ROM Neuro: COMMON NORMALS: patient oriented x3, moves all extremities, no focal motor deficits and no sensory deficits noted SENSORIUM/ORIENTATION: Yes alert MENINGEAL SIGNS: Yes no meningeal signs Psych: COMMON NORMALS: mental status grossly normal, cooperative and speech normal SPEECH: Yes normal speech Skin: COMMON NORMALS: no rashes or lesions noted GENERAL SKIN EXAM: no rashes or lesions noted Course 2 Vital Signs: Vital signs: Vital Signs Temperature 98.0 F 03/21/25 18:25 Pulse Rate 69 03/21/25 23:30 Respiratory Rate 18 03/21/25 23:18 Blood Pressure 118/74 03/21/25 23:30 Pulse Oximetry 99 03/21/25 23:30 Oxygen Delivery Me thod Room Air 03/21/25 23:30 MDM - Abdominal Pain Medical Decision Making Patient presented with lower abdominal pain beginning while at work today, had to call off of work. Lower abdominal tenderness to palpation on exam, took Azo for symptoms which did not help. Pain was suprapubic, however did not have any dysuria or hematuria other than her urine appearing orange after the Azo. Vitals have been stable, lab work unremarkable, urinalysis showing 15-25 white blood cells, unable to test for nitrate or leukocyte secondary to the urine. However with her symptoms this likely could be an acute cystitis, possible ruptured ovarian cyst. Abdominal pelvic CT was unremarkable for any acute pathology, will be discharged on Bactrim and encouraged to follow-up with primary care for routine reevaluation. Patient agrees with this plan. Lab Data 03/21/25 20:16 03/21/25 20:16 Labs/Radiology: Radiology Impressions Abdomen/Pelvis CT 03/21/25 21:45 IMPRESSION: 1. Age-indeterminate right L3 transverse process fracture. Correlate with patient's history/physical exam. 2. Corpus luteal cyst of the left ovary. 3. Otherwise, no acute process in the abdomen or pelvis to explain the patient's symptoms. Laboratory Results WBC 11.75 10^3/uL (3.29-11.43) H 03/21/25 20:16 RBC 4.33 10^6/uL (3.85-5.65) 03/21/25 20:16 Hgb 13.10 g/dL (11.27-16.99) 03/21/25 20:16 Hct 38.3 % (36-47) 03/21/25 20:16 MCV 88.5 fl (85-98) 03/21/25 20:16 MCH 30.3 pg (27-33) 03/21/25 20:16 MCHC 34.2 g/dL (30-55) 03/21/25 20:16 RDW 12.4 % (12.1-15.1) 03/21/25 20:16 Plt Count 266 10^3/cmm (157-399) 03/21/25 20:16 MPV 10.9 fL (7.4-10.4) H 03/21/25 20:16 Neut % (Auto) 69.8 % 03/21/25 20:16 Lymph % (Auto) 23.0 % 03/21/25 20:16 [place] % (Auto) 5.9 % 03/21/25 20:16 Eos % (Auto) 0.7 % 03/21/25 20:16 Baso % (Auto) 0.3 % 03/21/25 20:16 Neut # (Auto) 8.21 10^3/uL (1.8-7.7) H 03/21/25 20:16 Lymph # (Auto) 2.7 10^3/uL (0.8-4.8) 03/21/25 20:16 [place] # (Auto) 0.7 10^3/uL (0.2-0.9) 03/21/25 20:16 Eos # (Auto) 0.1 10^3/uL (0.0-0.8) 03/21/25 20:16 Baso # (Auto) 0.0 10^3/uL (0.0-0.1) 03/21/25 20:16 Nucleated RBC % (auto) 0 % 03/21/25 20:16 Nucleated RBCs # 0.0 /100WBC 03/21/25 20:16 Sodium 137 mmol/L (136-145) 03/21/25 20:16 Potassium 4.1 mmol/L (3.5-5.1) 03/21/25 20:16 Chloride 103 mmol/L (98-107) 03/21/25 20:16 Carbon Dioxide 23 mmol/L (22-29) 03/21/25 20:16 Anion Gap 15.1 (5-19) 03/21/25 20:16 BUN 11 mg/dL (6-20) 03/21/25 20:16 Creatinine 0.6 mg/dL (0.5-0.9) 03/21/25 20:16 GFR Calculation 112.5 mL/min (90-130) 03/21/25 20:16 Glucose 90 mg/dL (65-115) 03/21/25 20:16 Calculated Osmolality 283 mOsm/kg (285-295) L 03/21/25 20:16 Calcium 9.2 mg/dL (8.5-10.5) 03/21/25 20:16 Total Bilirubin 0.2 mg/dL (0.15-1.2) 03/21/25 20:16 AST 17 U/L (0-32) 03/21/25 20:16 ALT 12 U/L (0-33) 03/21/25 20:16 Alkaline Phosphatase 56 U/L (35-105) 03/21/25 20:16 Total Protein 7.6 g/dL (6.6-8.7) 03/21/25 20:16 Albumin 4.6 g/dL (3.5-5.2) 03/21/25 20:16 Globulin 3.0 g/dL (1.3-4.6) 03/21/25 20:16 HCG, Qual Negative (Negative) 03/21/25 19:00 Urine Color Page (Yellow) A 03/21/25 19:00 Urine Appearance Clear (CLEAR) 03/21/25 19:00 Urine pH Not Reportable 03/21/25 19:00 Ur Specific [place] Not Reportable 03/21/25 19:00 Urine Protein Not Reportable 03/21/25 19:00 Urine Glucose (UA) Not Reportable 03/21/25 19:00 Urine Ketones Not Reportable 03/21/25 19:00 Urine Blood Not Reportable 03/21/25 19:00 Urine Nitrate Not Reportable 03/21/25 19:00 Urine Bilirubin Not Reportable 03/21/25 19:00 Urine Urobilinogen Not Reportable 03/21/25 19:00 Ur Leukocyte Esterase Not Reportable 03/21/25 19:00 Urine RBC 0-4 /hpf (0-2) H 03/21/25 19:00 Urine WBC 15-25 /hpf (0-5) H 03/21/25 19:00 Ur Squamous Epith Cells 0-4 /hpf (0-5) H 03/21/25 19:00 Amorphous Sediment Not Reportable 03/21/25 19:00 Urine Bacteria None /hpf (NONE) 03/21/25 19:00 All radiology interpretation(s) finalized by discharge Discharge Plan Discharge Patient Disposition: Home Clinical Impression: Urinary tract infection Qualifiers: Urinary tract infection type: acute cystitis Hematuria presence: without hematuria Qualified Code(s): N30.00 - Acute cystitis without hematuria Condition: Stable Prescriptions: New sulfamethoxazole-trimethoprim [Bactrim DS] 800-160 mg tablet 1 tab PO BID 7 Days Qty: 14 0RF ondansetron 4 mg tablet,disintegrating 4 mg PO TID PRN (Reason: nausea and vomiting) Qty: 30 0RF No Action diclofenac sodium 75 mg tablet,delayed release (DR/EC) 75 mg PO Q12H PRN (Reason: pain) Qty: 20 0RF Discharge Orders: Discharge ED (Routine); Ordered 03/21/25 Ordered By: Aniket Pearson Referrals: Joana Tariq FNP-C [Primary Care Provider, Family Practice] Patient Instructions: Patient Portal & Gely Instructions Activity Restrictions/Additional Instructions: UTI & Ovarian Cyst Discharge Diagnosis: - Uncomplicated urinary tract infection (UTI) - Possible ruptured ovarian cyst - Normal laboratory and imaging results Medications: - Trimethoprim-sulfamethoxazole (Bactrim DS) 160/800 mg: Take one tablet by mouth every 12 hours (twice daily) for 7 days. Complete the full course even if symptoms improve early. Do not skip doses, as incomplete therapy may reduce effectiveness and increase the risk of antibiotic resistance.[1] https://dailymed.nlm.nih.gov/dailymed/drugInfo.cfm?qrvrh=[email or web address]-sf8s -[id number] [2] https://jamanetwork.com/journals/grisel/fullarticle/10.1001/grisel.2014.82970?utm_so urce=openevidence&utm_medium=referral [3] https://dailyLiquefied [employer].[place].gov/dailymed/drugInfo.cfm?setid=[id number] [id number] - Ondansetron 4 mg orally disintegrating tablet: Take as needed for nausea, following prescribed instructions. Supportive Care and Monitoring: - Hydration: Maintain adequate fluid intake to help flush bacteria from the urinary tract and to prevent crystalluria and kidney stone formation during Bactrim therapy.[1] https://dailyLiquefied [employer].[place].gov/dailymed/drugInfo.cfm?vbarv=[id number]-kj0x -[id number] [3] https://dailyLiquefied [employer].[place].gov/dailymed/drugInfo.cfm?setid=[email or web address] -[id number] - Pain Management: Use acetaminophen or ibuprofen as needed for pelvic or abdominal pain, unless contraindicated. - Activity: Rest as needed. Gradually resume normal activities as tolerated. Expected Course: - Most uncomplicated UTIs respond to antibiotics within 48?72 hours. Symptoms from a ruptured ovarian cyst typically resolve within days to a week with supportive care, provided there are no complications. Warning Signs ? Seek Immediate Medical Attention for Any of the Following: - Fever >101?F (38.3?C), chills, or persistent vomiting - Severe or worsening abdominal or pelvic pain - Heavy vaginal bleeding - Signs of allergic reaction to Bactrim: rash, itching, swelling, difficulty breathing, or new onset fever, sore throat, joint pain, cough, chest pain, pallor, purpura, or jaundice[3] https://dailyLiquefied [employer].[place].gov/dailymed/drugInfo.cfm?setid=[email or web address] -[id number] - Decreased urine output, dark urine, or swelling of the legs - Persistent nausea or inability to tolerate oral fluids Common Side Effects of Bactrim: - Nausea, vomiting, diarrhea, loss of appetite, or mild skin rash[3] https://dailyLiquefied [employer].nih.gov/dailymed/drugInfo.cfm?setid=[email or web address]-i0q8 -[id number] - If diarrhea is severe or persistent, or if you develop a skin rash, stop the medication and contact your healthcare provider.[3] https://dailyLiquefied [employer].nih.gov/dailymed/drugInfo.cfm?setid=[email or web address]-r1e3 -[id number] Follow-Up: - If symptoms do not improve within 72 hours, or if new symptoms develop, contact your healthcare provider. - Routine follow-up is not required if symptoms resolve, but return for evaluation if symptoms persist or worsen. Additional Instructions: - Take Bactrim with a full glass of water. - Avoid excessive sun exposure; Bactrim may increase sensitivity to sunlight. - Do not take Bactrim if you have a known allergy to sulfa drugs. - Inform your provider of any other medications or supplements you are taking. Reproductive Health: - If you experience new or worsening pelvic pain, abnormal vaginal bleeding, or signs of infection, seek prompt evaluation. - If you are or , notify your provider, as medication adjustments may be necessary. Contact Information: - For urgent concerns, contact your healthcare provider or return to the emergency department. [1] https://dailyLiquefied [employer].nih.gov/dailymed/drugInfo.cfm?ndhvy=[id number] -[id number] [2] https://jamanetwork.com/journals/grisel/fullarticle/10.1001/grisel.2014.15908?utm_so urce=openevidence&utm_medium=referral [3] https://dailyLiquefied [employer].nih.gov/dailymed/drugInfo.cfm?setid=[email or web address]-l [email or web address] References * Bactrim DS https://dailymed.[employer].nih.gov/dailymed/drugInfo.cfm?zrexl=[id number] [id number] . Food and Drug Administration. Updated date: 2009-04-10. * Diagnosis and Management of Urinary Tract Infections in the Outpatient Setting: A Review https://jamanetwork.com/journals/grisel/fullarticle/10.1001/grisel.2014.25993?utm_ source=openevidence&utm_medium=referral . Anup L, Michelet BW, Micah K. GRISEL. 2014 May 02;312(16):167-49. doi:10.1001/grisel.2014.75204. * Bactrim https://dailymed.[employer].nih.gov/dailymed/drugInfo.cfm?setid=[id number] . Food and Drug Administration. Updated date: 2024-07-10. Stand Alone Forms: Work/School Release Print Language: Sri Lankan Coding Level of Care Code ED Care Transport Nurse for Hugo Schuster
[2025-03-21 20:36] LABS: Add Urine Microscopic? NO
[2025-03-21 20:38] LABS: Alanine Aminotransferase 12 U/L (0-33); Albumin Level 4.6 g/dL (3.5-5.2); Alkaline Phosphatase 56 U/L (35-105); Aspartate Amino Transferase 17 U/L (0-32); Calcium 9.2 mg/dL (8.5-10.5); Carbon Dioxide 23 mmol/L (22-29); Chloride 103 mmol/L (98-107); Creatinine Clr Calc Pharmacy 137.3360; Globulin 3.0 g/dL (1.3-4.6); Glucose 90 mg/dL (65-115); Sodium 137 mmol/L (136-145); Total Protein 7.6 g/dL (6.6-8.7)
[2025-03-21 20:52] LABS: Anion Gap 15.1 (5-19); Blood Urea Nitrogen 11 mg/dL (6-20); Osmolality Calculated 283 mOsm/kg (285-295); Potassium 4.1 mmol/L (3.5-5.1)
[2025-03-21 20:58] LABS: UA Manual Slide Review YES
[2025-03-21 21:00] LABS: Charge for UA Resulting for Rev
--- NOTE | 2025-03-21 21:45 | CTR_ITS ---
PROCEDURE INFORMATION: Exam: CT Abdomen And Pelvis With Contrast Exam date and time: 03/21/2025 10:41 PM Age: 39 years old Clinical indication: Abdominal pain; Prior surgery; Surgery date: 6+ months; Surgery type: Appy; Additional info: Lower abdominal pain TECHNIQUE: Imaging protocol: Computed tomography of the abdomen and pelvis with contrast. Radiation optimization: All CT scans at this facility use at least one of these dose optimization techniques: automated exposure control; mA and/or kV adjustment per patient size (includes targeted exams where dose is matched to clinical indication); or iterative reconstruction. Contrast material: OMNI 350; Contrast volume: 100 ml; Contrast route: INTRAVENOUS (IV); COMPARISON: US transvaginal [id number] 09/12/2020 1:45 PM RADIATION DOSE METRICS: Total DLP (mGy-cm): 704.53 FINDINGS: Liver: Fatty infiltration versus 3rd inflow artifact is noted at the anterior falciform ligament. The liver is otherwise within normal limits. Gallbladder and biliary ducts: Normal. No calcified stones. No ductal dilation. Pancreas: Normal. No ductal dilation. Spleen: Normal. No splenomegaly. Adrenal glands: Normal. No mass. Kidneys and ureters: Normal. No hydronephrosis. Stomach and bowel: Unremarkable. No obstruction. No mucosal thickening. Appendix: There has been an appendectomy. Intraperitoneal space: Small volume simple attenuating free pelvic fluid is noted, which may be physiologic in a female of this stated age. Vasculature: Unremarkable. No abdominal aortic aneurysm. Lymph nodes: Unremarkable. No enlarged lymph nodes. Urinary bladder: The urinary bladder is nondistended and poorly characterized. Pseudo wall thickening is present. Reproductive: A 1.6 cm crenulated cyst is seen in the left ovary. Bones/joints: Age-indeterminate L3 right transverse process fracture. Soft tissues: Unremarkable. CT/CT abdomen pelvis w con* [id number] IMPRESSION: 1. Age-indeterminate right L3 transverse process fracture. Correlate with patient's history/physical exam. 2. Corpus luteal cyst of the left ovary. 3. Otherwise, no acute process in the abdomen or pelvis to explain the patient's symptoms.
[2025-03-21] MEDS: iohexol 350 mg/mL 500 mL Btl (per mL) IV (22:43)
[2025-03-21] MEDS: morphine 4 mg/mL SDV 1 mL IVP (23:18)
[2025-03-22 00:38] VITALS: BP 111/64; PULSE 68; O2SAT 98
== END 2025-03-22 00:43 | disposition home or self-care (01) ==
PROVIDERS: Emergency Provider Physician Assistant; PCP Nurse Practitioner Family
DX: N30.00 Acute cystitis without hematuria (principal); F17.210 Nicotine dependence, cigarettes, uncomplicated
CPT/HCPCS: 74177; 80053; 81003; 81025; 85025; 87077; 87086; 87186; 96361; 96374; 96375; 99285; J1885; J2270; J7040